=== PATIENT | male | born 1980 | race Two or more races ===

== ENCOUNTER 2018-08-09 04:52 | Emergency (ER) | payer SELFPAY ==
[~2018-08-09] VITALS: Ht 172.7 cm; Wt 50.0 kg
[2018-08-09] MEDS ORDERED: IBUPROFEN 600MG TABLET PO ONE (07:45)
[2018-08-09 08:51] VITALS: BP 115/78
== END 2018-08-09 08:53 | disposition home or self-care (01) ==
LOC: ER 04:52
DX: H66.92 Otitis media, unspecified, left ear (principal); R05 Cough; Z88.1 Allergy status to other antibiotic agents; Z88.8 Allergy status to other drugs, medicaments and biological substances
CPT/HCPCS: 71045; 99283